=== PATIENT | female | born 1975 | race Caucasian/White ===

== ENCOUNTER 2016-10-06 16:59 | Emergency (ER) | payer SELFPAY ==
[~2016-10-06] VITALS: Ht 157.5 cm; Wt 50.0 kg
[2016-10-06 17:04] VITALS: Ht 157.5 cm; Wt 50.0 kg
[2016-10-06] MEDS ORDERED: MAGNESIUM SULFATE 2 GM, MULTIVITAMINS 10 ML, THIAMINE 100 MG, FOLIC ACID 1 MG in SOD CH... IV STA (17:24)
[2016-10-06] MEDS ORDERED: HALOPERIDOL 5 MG INJ IM ONE (17:30)
[2016-10-06] MEDS ORDERED: LORAZEPAM 2 MG INJ IM ONE (17:30)
--- NOTE | 2016-10-06 18:28 | ERD ---
ER Documentation Chief Complaint Date/Time DATE: 10/06/16 TIME: 18:25 Chief Complaint etoh HPI Patient is a 41-year-old female who was found wandering down the middle of the street intoxicated. She denies any significant injuries. She denies any complaints other than not wanting to be here. She refuses to answer any other questions. ROS All systems reviewed and are negative except as per history of present illness. Physical Exam Vitals Vital Signs Date Time Temp Pulse Resp B/P Pulse Ox O2 Delivery O2 Flow Rate FiO2 10/06/16 19:53 98.3 75 16 98/60 95 Room Air 3.0 Nasal Cannula 10/06/16 17:04 97.9 64 18 108/52 100 Physical Exam Const: Well-developed well-nourished female handcuffed to the bed Head: Atraumatic normocephalic Eyes: Normal Conjunctiva ENT: Normal External Ears, Nose and Mouth. Neck: Full range of motion..~ No meningismus. Resp: Clear to auscultation bilaterally Cardio: Regular rate and rhythm, no murmurs Abd: Soft, non tender, non distended. Normal bowel sounds Skin: No petechiae or rashes Ext: No cyanosis, or edema Neur: Awake and alert, GCS equals 15, moves all extremities equally, nonfocal Psych: Appears intoxicated but does answer questions appropriately when she feels like it otherwise becomes agitated and aggressive at other times Result Diagram: 10/06/16181410/06/16 1815 Results 24 hrs Laboratory Tests Test 10/06/16 18:15 Acetaminophen Level < 10.0ug/ml Alanine Aminotransferase (ALT/SGPT) 22IU/L Albumin 5.2g/dl Albumin/Globulin Ratio 1.40 Alkaline Phosphatase 69IU/L Anion Gap 25 Aspartate Amino Transf (AST/SGOT) 30IU/L Basophils # 0.010^3/ul Basophils % 0.5% Beta HCG, Quantitative < 2.4mIU/ml Blood Urea Nitrogen 9mg/dl Calcium Level 9.7mg/dl Carbon Dioxide Level 25mmol/L Chloride Level 100mmol/L Creatinine 0.60mg/dl Direct Bilirubin 0.00mg/dl Eosinophils # 0.010^3/ul Eosinophils % 0.1% Ethyl Alcohol Level 352.0mg/dl Globulin 3.70g/dl Glucose Level 64mg/dl Hematocrit 40.4% Hemoglobin 13.9g/dl Indirect Bilirubin 0.1mg/dl Lymphocytes # 2.410^3/ul Lymphocytes % 40.2% Mean Corpuscular Hemoglobin 32.8pg Mean Corpuscular Hemoglobin Concent 34.3g/dl Mean Corpuscular Volume 95.7fl Mean Platelet Volume 7.6fl Monocytes # 0.510^3/ul Monocytes % 8.5% Neutrophils # 3.110^3/ul Neutrophils % 50.7% Nucleated Red Blood Cells # 0.010^3/ul Nucleated Red Blood Cells % 0.0/100WBC Platelet Count 30338^3/UL Potassium Level 4.3mmol/L Red Blood Count 4.2210^6/ul Red Cell Distribution Width 12.1% Salicylates Level < 1.0mg/dl Serum HCG, Qualitative NEGATIVE Sodium Level 146mmol/L Total Bilirubin 0.1mg/dl Total Protein 8.9g/dl Urine Amphetamines Screen Negative Urine Bacteria FEW Urine Barbiturates Negative Urine Benzodiazepines Screen Negative Urine Bilirubin NEGATIVE Urine Cannabinoids Negative Urine Clarity HAZY Urine Cocaine Screen Negative Urine Color LT. YELLOW Urine Glucose NEGATIVE% Urine Hemoglobin TRACE Urine Ketones NEGATIVE Urine Leukocyte Esterase NEGATIVE Urine Microscopic RBC 0-2/HPF Urine Microscopic WBC 0-2/HPF Urine Nitrite NEGATIVE Urine Opiates Screen Negative Urine Specific [place] <=1.005 Urine Squamous Epithelial Cells MODERATE Urine Total Protein NEGATIVE Urine Urobilinogen 0.2 E.U./dL Urine pH 5.5 White Blood Count 6.010^3/ul Current Medications Medications (Trade) Dose Ordered Sig/Ada Route PRN Reason Start Time Stop Time Status Last Admin Dose Admin Haloperidol (Haldol) 5 mg ONCE ONCE IM 10/06/16 17:30 10/06/16 17:31 DC 10/06/16 18:22 Lorazepam 2 mg 2 mg ONCE ONCE IM 10/06/16 17:30 10/06/16 17:31 DC 10/06/16 18:22 Magnesium Sulfate/ Multivitamins/ Thiamine HCl/ Folic Acid/Sodium Chloride (Magnesium Sulfate/Mvi Adult/ Vitamin B1/Folic Acid/NS) 1,015.2 ml @ 500 mls/ hr Q2H2M STAT IV 10/06/16 17:24 10/06/16 19:25 DC 10/06/16 18:22 Lorazepam (Ativan) 2 mg ONCE ONCE IV 10/06/16 19:00 10/06/16 19:01 DC 10/06/16 19:44 Diphenhydramine HCl (Benadryl) 25 mg ONCE ONCE IV 10/06/16 19:00 10/06/16 19:01 DC 10/06/16 19:44 Dextrose (D50w Syringe) 50 ml ONCE ONCE IV 10/06/16 19:30 10/06/16 19:31 DC 10/06/16 19:44 Procedures/MDM Medical decision m[age]-year-old female who appears to be grossly intoxicated by history and on exam. I will rule out any possible medical causes for her behavior. Once she is medically cleared hopefully she will be able to be discharged home as she has no obvious signs of outward trauma. CT head: No evidence for intracranial hemorrhage or trauma. Patient has a GCS of 15 although she is grossly intoxicated. It appears that with an alcohol level is 352 she may be a chronic alcoholic as she is clearly tolerating this level quite well. I have informed the nursing staff and the patient that if she is able to find a ride home then she may be discharged with this individual. Departure Diagnosis: Primary Impression: Alcoholic intoxication Complication of substance-induced condition: uncomplicated Qualified Code: F10.120 - Alcoholic intoxication, uncomplicated Additional Impression: Hypoglycemia Condition: Good Patient Instructions: Alcohol Intoxication, Hypoglycemia, Non Diabetic Additional Instructions: Please do not drinks to much alcohol again. This places your health at jeopardy. Please seek help in a detox center if you feel that you need help. Or if you are drinking alcohol on a regular basis. Return to the emergency department any time if you develop any new or worsening symptoms or if you are feeling depressed or suicidal. AWA WOLFE Oct 06, 2016 18:28
[2016-10-06 18:34] LABS: BASOPHILS % 0.5 % (0.0-2.0); CONDITION 1; EOSINOPHILS % 0.1 % (0.0-7.0); HEMATOCRIT 40.4 % (37.0-47.0); HEMOGLOBIN 13.9 g/dl (12.0-16.0); LYMPHOCYTES # 2.4 10^3/ul (0.8-2.9); LYMPHOCYTES % 40.2 % (15.0-51.0); MEAN CORPUSCULAR HEMOGLOBIN 32.8 pg (29.0-33.0); MEAN CORPUSCULAR HGB CONC 34.3 g/dl (32.0-37.0); MEAN CORPUSCULAR VOLUME 95.7 fl (82.0-101.0); MEAN PLATELET VOLUME 7.6 fl (7.4-10.4); MONOCYTE # 0.5 10^3/ul (0.3-0.9); MONOCYTES % 8.5 % (0.0-11.0); NEUTROPHIL # 3.1 10^3/ul (1.6-7.5); NEUTROPHILS % 50.7 % (39.0-77.0); PLATELET COUNT 386 10^3/UL (140-440); RED BLOOD COUNT 4.22 10^6/ul (4.20-5.40); RED CELL DISTRIBUTION WIDTH 12.1 % (11.5-14.5)
[2016-10-06 18:37] LABS: ADD UMIC YES; URINE BILIRUBIN (Dip) NEGATIVE (NEGATIVE); URINE BLOOD (Dip) TRACE (NEGATIVE); URINE COLOR LT. YELLOW (YELLOW); URINE GLUCOSE (Dip) NEGATIVE (NEGATIVE); URINE KETONES (Dip) NEGATIVE (NEGATIVE); URINE LEUKOCYTE ESTERASE (Dip) NEGATIVE (NEGATIVE); URINE NITRITE (Dip) NEGATIVE (NEGATIVE); URINE TOTAL PROTEIN (Dip) NEGATIVE (NEGATIVE); URINE UROBILINOGEN (Dip) 0.2 E.U./dL (0.1-1.0)
[2016-10-06 18:48] LABS: ALBUMIN 5.2 g/dl (3.3-4.9); CHLORIDE 100 mmol/L (97-110)
[2016-10-06 18:49] LABS: POTASSIUM 4.3 mmol/L (3.5-5.1); SODIUM 146 mmol/L (135-144)
[2016-10-06 18:51] LABS: ALANINE AMINOTRANSFERASE 22 IU/L (13-69); ALKALINE PHOSPHATASE 69 IU/L (42-121); ANION GAP 25 (8-16); ASPARTATE AMINO TRANSFERASE 30 IU/L (15-46); BILIRUBIN,INDIRECT 0.1 mg/dl (0-1.1); BILIRUBIN,TOTAL 0.1 mg/dl (0.2-1.3); BLOOD UREA NITROGEN 9 mg/dl (7-20); CALCIUM 9.7 mg/dl (8.4-10.2); CARBON DIOXIDE 25 mmol/L (21-31); GLUCOSE 64 mg/dl (70-220); TOTAL PROTEIN 8.9 g/dl (6.1-8.1)
[2016-10-06 18:58] LABS: ACETAMINOPHEN < 10.0 ug/ml (10.0-30.0); BARBITURATES Negative (NEGATIVE); BENZODIAZEPINES Negative (NEGATIVE); CANNABINOIDS Negative (NEGATIVE); COCAINE Negative (NEGATIVE); OPIATES Negative (NEGATIVE); SALICYLATE < 1.0 mg/dl (5.0-30.0)
[2016-10-06 18:59] LABS: SQUAMOUS EPITHELIAL CELL,UR MODERATE; URINE RBCS 0-2 /HPF (0)
[2016-10-06 19:00] LABS: BACTERIA,URINE FEW
[2016-10-06] MEDS ORDERED: LORAZEPAM 2 MG INJ IV ONE (19:00)
[2016-10-06] MEDS ORDERED: DIPHENHYDRAMINE 50 MG INJ IV ONE (19:00)
[2016-10-06] MEDS ORDERED: DEXTROSE 50% 50 ML SYRINGE IV ONE (19:30)
--- NOTE | 2016-10-06 20:21 | RADRPT ---
PROCEDURE: CT head CLINICAL INDICATION: Altered mental status. Medical clearance. TECHNIQUE: Contiguous 2.5 mm axial images were obtained from the vertex to the skull base. No int ravenous contrast was administered. The calculated dose length product (DLP) = 720.23 mGy-cm. The CTDlvol = 45.01 mGy. One or more of the following dose reduction techniques were used: Automated e xposure control, adjustment of the mA and or KV according to patient size, or use of iterative recon struction technique. COMPARISON: None FINDINGS: There is no evidence of acute intracranial hemorrhage or acute territorial infarct. No mass or mass effect is seen on this noncontrast study. The ventricles and cisterns are normal in size and confi guration. The patterson-white matter differentiation is within normal limits. The visualized paranasal sinuses are normally aerated. The bony calvarium is unremarkable IMPRESSION: Unremarkable unenhanced CT of the brain RPTAT: .Nii Betancourt MD, MD Date Time Electronically viewed and signed by .Nii Betancourt MD, on 10/06/2016 20:21 .W/
[2016-10-07 01:15] VITALS: BP 96/74; PULSE 80; RESP 16; TEMP 97.9
--- NOTE | 2016-10-07 01:24 | EN ---
Date/Time of Note Date/Time of Note DATE: 10/07/16 TIME: 01:21 ER Progress Note Observation Note: Time: 4 hour Family Hx: No Hypertension Evaluation: Multiple exams showed improving symptoms and no evidence of suicidal ideation, homicidal ideation, gravely disabled She is able to ambulate independently, tolerate p.o. well without any difficulty. She is advised to follow her doctor for follow-up in 1-2 days, sooner if needed and return if any concern STEFANY HINSON MD Oct 07, 2016 01:23
== END 2016-10-07 01:29 | disposition home or self-care (01) ==
LOC: E/R 16:59
DX: F10.120 Alcohol abuse with intoxication, uncomplicated (principal); E16.2 Hypoglycemia, unspecified; R41.82 Altered mental status, unspecified
CPT/HCPCS: 36415; 70450; 80053; 80306; 80307; 81001; 84702; 84703; 85025; 96372; 96374; 96375; 99285; J1200; J1630; J2060; J3411; J3475; J7030; 81003